=== PATIENT | female | born 2000 | race Caucasian/White ===

== ENCOUNTER 2018-10-19 23:44 | Emergency (ER) | payer OTHER ==
[2018-10-19] MEDS ORDERED: Lidocaine 1% (PF) 30 ML VIAL ONE (23:52)
== END 2018-10-20 00:25 | disposition home or self-care (01) ==
LOC: NAV ERS 23:44
DX: L02.214 Cutaneous abscess of groin (principal)
CPT/HCPCS: 10060; J2001